=== PATIENT | female | born 1945 | race Caucasian/White ===

== ENCOUNTER 2016-12-01 13:35 | Outpatient (CLI) | payer MEDICARE, OTHER | END 2016-12-01 13:36 | disposition home or self-care (01) | DX: I25.10 Atherosclerotic heart disease of native coronary artery without angina pectoris (principal); I10 Essential (primary) hypertension; R73.01 Impaired fasting glucose; E78.9 Disorder of lipoprotein metabolism, unspecified ==

== ENCOUNTER 2017-06-16 22:45 | Emergency (ER) | payer MEDICARE, OTHER ==
[2017-06-16 23:47] LABS: BASOPHILS # (AUTO) 0.1 10^3/uL (0.0-0.1); BASOPHILS % (AUTO) 0.9 %; EOSINOPHILS # (AUTO) 0.3 10^3/uL (0.0-0.7); EOSINOPHILS % (AUTO) 4.3 %; HGB - HEMOGLOBIN 12.7 g/dL (12.0-16.0); LYMPHOCYTES # (AUTO) 2.7 10^3/uL (1.5-3.5); LYMPHOCYTES % (AUTO) 36.3 %; MEAN CORPUSCULAR HEMOGLOBIN 31.4 pg (27.0-31.0); MEAN CORPUSCULAR HGB CONC 34.3 g/dL (32.0-36.0); MEAN CORPUSCULAR VOLUME 91.5 fL (81.0-99.0); MEAN PLATELET VOLUME 8.5 fL (7.9-10.8); MONOCYTES # (AUTO) 0.7 10^3/uL (0.0-1.0); MONOCYTES % (AUTO) 9.2 %; NEUTROPHILS # (AUTO) 3.6 10^3/uL (1.5-6.6); NEUTROPHILS % (AUTO) 49.3 %; RED BLOOD COUNT 4.04 10^6/uL (4.20-5.40); RED CELL DISTRIBUTION WIDTH 14.1 % (12.0-15.0); UNCORRECTED WHITE BLOOD COUNT 7.3 x10^3/uL; WHITE BLOOD COUNT 7.3 x10^3/uL (4.8-10.8)
[2017-06-16 23:54] LABS: INR 0.9 (0.8-1.2); PT - PROTHROMBIN TIME 10.7 secs (9.9-12.6)
[2017-06-17 00:01] LABS: PARTIAL THROMBOPLASTIN TIME 27.1 secs (24.9-33.3)
[2017-06-17 00:02] LABS: ALBUMIN/GLOBULIN RATIO 1.4 (1.0-2.2); BILIRUBIN,TOTAL 0.5 mg/dL (0.2-1.0); CREATININE 0.8 mg/dL (0.4-1.0); POTASSIUM 3.7 mmol/L (3.5-5.0); TOTAL PROTEIN 6.6 g/dL (6.7-8.2)
--- NOTE | 2017-06-17 00:38 | Ultrasound Preliminary Report ---
Exam: US Duplex Ext Veins Left IMPRESSION: No evidence for left leg deep venous thrombosis. [facility] SITE ID: [id number]
--- NOTE | 2017-06-17 00:43 | Ultrasound Report ---
EXAM: LEFT LOWER EXTREMITY VENOUS ULTRASOUND EXAM DATE: 06/17/2017 12:27 AM. CLINICAL HISTORY: Unilateral leg swelling. COMPARISON: None. TECHNIQUE: Real-time sonographic vascular imaging was performed by the gang punch operator through the lower extremity utilizing both color-flow and Doppler spectral analysis. Multiple patient registration representative static reji ges were saved for review. FINDINGS: Common Femoral Vein (CFV): Normal. CFV-GSV Junction: Normal. Profunda Femoral Vein (PFV): Normal. Femoral Vein (FV) Prox: Normal. Femoral Vein (FV) Mid: Normal. Femoral Vein (FV) Dist: Normal. Popliteal Vein: Normal. Posterior Tibial Veins: Normal. Peroneal Veins: Normal. Contralateral Side CFV: Normal. Other: Subcutaneous edema present.. IMPRESSION: No evidence for left leg deep venous thrombosis. [facility] Referring Provider Line: [phone] SITE ID: [id number]
[2017-06-17 01:08] VITALS: BP 149/71
--- NOTE | 2017-06-17 01:09 | ED Physician Documentation ---
PD HPI LOWER EXT INJURY - Stated complaint Stated Complaint: FOOT/LEG PX - Chief complaint Chief Complaint: Ext Problem - History obtained from History obtained from: Patient - History of Present Illness PD HPI LOW EXT INJURY LOCATION: Left, Lower leg Where injury occurred: Home Timing - onset: Yesterday Timing - details: Gradual onset, Still present Improved by: Nothing Contributing factors: Prior ortho surgery Similar symptoms before: Has not had sx before Recently seen: Not recently seen - Additional information Additional information: Patient is a 72 year old female with multiple co-morbidities who is presenting to the emergency department for left sided leg swelling. patient states that she noticed the swelling over the last couple of days. Patient's family members were worried about a dvt so the patient came in for evaluation. Review of Systems Constitutional: denies: Fever, Chills Eyes: denies: Decreased vision, Photophobia Ears: denies: Ear pain, Drainage/discharge Nose: denies: Congestion Throat: denies: Sore throat Cardiac: reports: Pedal edema. denies: Chest pain / pressure, Palpitations, Calf pain Respiratory: reports: Wheezing. denies: Dyspnea, Cough GI: denies: Abdominal Pain, Nausea, Vomiting, Constipation : denies: Dysuria, Frequency, Hesitancy Skin: denies: Rash, Lesions Musculoskeletal: reports: Extremity swelling. denies: Neck pain, Back pain, Extremity pain Neurologic: denies: Generalized weakness, Focal weakness, Numbness, Difficulty speaking Immunocompromised: denies: Immunocompromised PD PAST MEDICAL HISTORY - Past Medical History Cardiovascular: [place], Hypertension, Other Respiratory: Other, COPD Neuro: None Endocrine/Autoimmune: None GI: None : None HEENT: None Psych: Anxiety Musculoskeletal: None Derm: None - Past Surgical History Past Surgical History: Yes General: Appendectomy Cardiovascular: AAA, Other HEENT: Cataracts, Tonsil/Adenoidectomy - Present Medications Home Medications: Ambulatory Orders Medication Instructions Recorded Confirmed Aspirin [Aspirin EC] 81 mg PO DAILY 08/02/15 08/02/15 Clonazepam [Klonopin] 1.5 mg PO TID 08/02/15 08/02/15 Duloxetine HCl [Cymbalta] 30 mg PO DAILY 08/02/15 08/02/15 Fluticasone Propionate [Flonase 1 spray NS BID 08/02/15 08/02/15 Allergy Relief] Fluticasone/Salmeterol [Advair 1 puffs IH BID 08/02/15 08/02/15 250-50 Diskus] Fosinopril Sodium 20 mg PO DAILY 08/02/15 08/02/15 Hydrocodone/Acetaminophen 1 - 2 tab PO Q6H PRN 08/02/15 08/02/15 [Hydrocodon-Acetaminophen 5-325] Ipratropium/Albuterol Sulfate 1 puffs IH QID PRN 08/02/15 08/02/15 [Combivent Respimat Inhal [place]] Atorvastatin Calcium 1 tab PO DAILY 06/16/17 06/16/17 Cyclobenzaprine [Flexeril] 5 mg PO PRN PRN 06/16/17 06/16/17 Furosemide [Lasix] 1 tab PO DAILY 06/16/17 06/16/17 Mirtazapine 1 tab PO QPM 06/16/17 06/16/17 Nitroglycerin 1 tab PO PRN PRN 06/16/17 06/16/17 [place]-3/Dha/Epa/Fish Oil [Fish Oil 1 tab PO DAILY 06/16/17 06/16/17 1,000 mg Softgel] Pantoprazole [Protonix] 1 tab PO DAILY 06/16/17 06/16/17 Polyethylene Glycol 3350 [Miralax] PO DAILY PM 06/16/17 Vit A/Vit C/Vit E/Zinc/Copper 1 tab PO DAILY 06/16/17 06/16/17 [Preservision Areds Softgel] - Allergies Allergies/Adverse Reactions: Allergies Allergy/AdvReac Type Severity Reaction Status Date / Time iodine Allergy Severe Respiratory Verified 06/16/17 22:57 prednisone AdvReac Unknown Unknown Verified 06/16/17 22:57 - Social History Does the pt smoke?: No Smoking Status: Former smoker Does the pt drink ETOH?: No Does the pt have substance abuse?: No - Immunizations Immunizations are current?: Yes PD ED PE NORMAL - Vitals Vital signs reviewed: Yes - General General: Alert and oriented X 3, No acute distress - HEENT HEENT: Atraumatic, PERRL, Pharynx benign - Neck Neck: Supple, no meningeal sign, No JVD - Cardiac Cardiac: RRR, No murmur - Abdomen Abdomen: Normal bowel sounds, Soft, Non tender, Non distended - Derm Derm: Normal color, Warm and dry, No rash - Neuro Neuro: Alert and oriented X 3, associate dean 2-12 intact, No motor deficit, No sensory deficit, Normal speech - Psych Psych: Normal mood, Normal affect PD ED PE EXPANDED - Respiratory Respiratory: Wheezing - Extremities Extremities: Left leg, Left ankle, Left foot, Pedal edema L (unilateral left sided plus 2 pitting edema, plus one on the right) Results - Vitals Vitals: Vital Signs - 24 hr 06/16/17 06/17/17 22:53 01:08 Temperature 36.8 C Heart Rate 75 72 Respiratory 18 18 Rate Blood Pressure 160/76 H 149/71 H O2 Saturation 96 98 Oxygen O2 Source Room air - Labs Labs: Laboratory Tests 06/16/17 06/16/17 06/16/17 23:41 23:41 23:41 WBC 7.3 RBC 4.04 L Hgb 12.7 Hct 37.0 MCV 91.5 MCH 31.4 H MCHC 34.3 RDW 14.1 Plt Count 184 MPV 8.5 Neut # 3.6 Lymph # 2.7 [place] # 0.7 Eos # 0.3 Baso # 0.1 Absolute Nucleated RBC 0.00 Nucleated RBCs 0.0 PT 10.7 INR 0.9 APTT 27.1 Sodium 143 Potassium 3.7 Chloride 104 Carbon Dioxide 30 Anion Gap 9.0 BUN 12 Creatinine 0.8 Estimated GFR (MDRD) 71 L Glucose 109 H Calcium 9.0 Total Bilirubin 0.5 AST 14 ALT 11 Alkaline Phosphatase 83 B-Natriuretic Peptide Total Protein 6.6 L Albumin 3.8 Globulin 2.8 Albumin/Globulin Ratio 1.4 Lipase 29 06/16/17 23:41 WBC RBC Hgb Hct MCV MCH MCHC RDW Plt Count MPV Neut # Lymph # Falls # Eos # Baso # Absolute Nucleated RBC Nucleated RBCs PT INR APTT Sodium Potassium Chloride Carbon Dioxide Anion Gap BUN Creatinine Estimated GFR (MDRD) Glucose Calcium Total Bilirubin AST ALT Alkaline Phosphatase B-Natriuretic Peptide 80 Total Protein Albumin Globulin Albumin/Globulin Ratio Lipase - Rads (name of study) dvt study Radiology: Final report received (no acute dvt) PD MEDICAL DECISION MAKING - ED course Complexity details: reviewed old records, reviewed results, re-evaluated patient , considered differential, d/w patient ED course: Patient was seen and examined at bedside. IV access was gained and labs were drawn. Imaging was ordered. Patient's diagnostics including dvt study were negative. Patient's findings were still consistent with DVT and patient was made aware of the importance of follow up and repeat imaging if necessary. patient required no further work up at this time and was stable for discharge with outpatient follow up. Departure - Departure Disposition: , Self Care Clinical Impression: Left leg swelling Condition: Good Instructions: ED Leg Swelling Unilateral Follow-Up: Pablo Mora MD [Primary Care Provider] - Within 3 Days Comments: Your diagnostics today were within normal limits. That being said dvt is still a possibility. You will need to follow up with your vascular doctor on sunday. You may return to the emergency department at any time for new, worsening or uncontrollable symptoms.
== END 2017-06-17 01:25 | disposition home or self-care (01) ==
LOC: ED 22:45
DX: M79.89 Other specified soft tissue disorders (principal); I25.2 Old myocardial infarction; I10 Essential (primary) hypertension; J44.9 Chronic obstructive pulmonary disease, unspecified; Z79.82 Long term (current) use of aspirin; Z87.891 Personal history of nicotine dependence
CPT/HCPCS: 36415; 80053; 83690; 83880; 85025; 85610; 85730; 99283

== ENCOUNTER 2018-02-27 08:00 | Outpatient (CLI) | payer MEDICARE, OTHER ==
[2018-02-27 19:25] LABS: BASOPHILS # (AUTO) 0.1 10^3/uL (0.0-0.1); BASOPHILS % (AUTO) 0.8 %; EOSINOPHILS # (AUTO) 0.4 10^3/uL (0.0-0.7); EOSINOPHILS % (AUTO) 5.6 %; HGB - HEMOGLOBIN 13.6 g/dL (12.0-16.0); LYMPHOCYTES # (AUTO) 2.3 10^3/uL (1.5-3.5); LYMPHOCYTES % (AUTO) 31.3 %; MEAN CORPUSCULAR HEMOGLOBIN 30.3 pg (27.0-31.0); MEAN CORPUSCULAR HGB CONC 32.9 g/dL (32.0-36.0); MEAN CORPUSCULAR VOLUME 92.1 fL (81.0-99.0); MEAN PLATELET VOLUME 9.2 fL (7.9-10.8); MONOCYTES # (AUTO) 0.5 10^3/uL (0.0-1.0); NEUTROPHILS # (AUTO) 4.1 10^3/uL (1.5-6.6); NEUTROPHILS % (AUTO) 55.3 %; PLT - PLATELET COUNT 244 10^3/uL (130-450); RED BLOOD COUNT 4.48 10^6/uL (4.20-5.40); RED CELL DISTRIBUTION WIDTH 13.5 % (12.0-15.0); WHITE BLOOD COUNT 7.4 x10^3/uL (4.8-10.8)
[2018-02-27 19:42] LABS: ALBUMIN 3.8 g/dL (3.2-5.5); ALBUMIN/GLOBULIN RATIO 1.2 (1.0-2.2); ALKALINE PHOSPHATASE 92 IU/L (42-121); ALT ALANINE AMINOTRANSFERASE 12 IU/L (10-60); AST ASPARTATE AMINOTRANSFERASE 16 IU/L (10-42); BILIRUBIN,TOTAL 0.7 mg/dL (0.2-1.0); BUN - BLOOD UREA NITROGEN 14 mg/dL (6-20); CALCIUM 9.1 mg/dL (8.5-10.3); CARBON DIOXIDE - CO2 24 mmol/L (21-32); CHLORIDE 107 mmol/L (101-111); CHOL/HDL RATIO 3.5 (<4.4); CHOLESTEROL 160 mg/dL; CREATININE 0.7 mg/dL (0.4-1.0); GFR - MDRD 82 (>89); GLUCOSE 138 mg/dL (70-100); HDL CHOLESTEROL 46 mg/dL; LDL CHOLESTEROL,CALCULATED 94 mg/dL; SODIUM 140 mmol/L (135-145); TOTAL PROTEIN 7.1 g/dL (6.7-8.2); VLDL CHOLESTEROL 20 mg/dL
[2018-02-27 20:09] LABS: HB2 TOTAL 15.3 g/dL; HEMOGLOBIN A1C 0.69 g/dL; HEMOGLOBIN A1C % 6.3 % (4.6-6.2)
== END 2018-02-27 08:01 ==
LOC: LAB.WCP 08:00
PROVIDERS: ATTEND Family Medicine
DX: R73.01 Impaired fasting glucose (principal); I10 Essential (primary) hypertension; I25.10 Atherosclerotic heart disease of native coronary artery without angina pectoris
CPT/HCPCS: 36415; 80053; 80061; 83036; 83721; 84443; 85025

== ENCOUNTER 2018-09-13 13:00 | Outpatient (CLI) | payer MEDICARE, OTHER ==
[2018-09-13 13:51] LABS: BASOPHILS # (AUTO) 0.1 10^3/uL (0.0-0.1); BASOPHILS % (AUTO) 0.9 %; EOSINOPHILS # (AUTO) 0.3 10^3/uL (0.0-0.7); EOSINOPHILS % (AUTO) 3.6 %; HGB - HEMOGLOBIN 15.1 g/dL (12.0-16.0); LYMPHOCYTES # (AUTO) 2.6 10^3/uL (1.5-3.5); LYMPHOCYTES % (AUTO) 31.1 %; MEAN CORPUSCULAR HEMOGLOBIN 31.7 pg (27.0-31.0); MEAN CORPUSCULAR HGB CONC 33.9 g/dL (32.0-36.0); MEAN CORPUSCULAR VOLUME 93.5 fL (81.0-99.0); MEAN PLATELET VOLUME 8.9 fL (7.9-10.8); MONOCYTES # (AUTO) 0.5 10^3/uL (0.0-1.0); MONOCYTES % (AUTO) 6.3 %; NEUTROPHILS # (AUTO) 4.9 10^3/uL (1.5-6.6); NEUTROPHILS % (AUTO) 58.1 %; PLT - PLATELET COUNT 214 10^3/uL (130-450); RED BLOOD COUNT 4.76 10^6/uL (4.20-5.40); RED CELL DISTRIBUTION WIDTH 14.2 % (12.0-15.0); WHITE BLOOD COUNT 8.4 x10^3/uL (4.8-10.8)
[2018-09-13 14:14] LABS: ALBUMIN 4.1 g/dL (3.2-5.5); ALBUMIN/GLOBULIN RATIO 1.3 (1.0-2.2); ALKALINE PHOSPHATASE 104 IU/L (42-121); ALT ALANINE AMINOTRANSFERASE 18 IU/L (10-60); AST ASPARTATE AMINOTRANSFERASE 20 IU/L (10-42); BILIRUBIN,TOTAL 0.9 mg/dL (0.2-1.0); BUN - BLOOD UREA NITROGEN 22 mg/dL (6-20); CALCIUM 9.5 mg/dL (8.5-10.3); CARBON DIOXIDE - CO2 28 mmol/L (21-32); CHLORIDE 102 mmol/L (101-111); CHOL/HDL RATIO 4.1 (<4.4); CHOLESTEROL 172 mg/dL; CREATININE 0.8 mg/dL (0.4-1.0); GFR - MDRD 70 (>89); GLUCOSE 187 mg/dL (70-100); HDL CHOLESTEROL 42 mg/dL; LDL CHOLESTEROL,CALCULATED 78 mg/dL; LDL/HDL RATIO 1.9 (<4.4); SODIUM 139 mmol/L (135-145); TOTAL PROTEIN 7.2 g/dL (6.7-8.2); VLDL CHOLESTEROL 52 mg/dL
== END 2018-09-13 13:01 | disposition home or self-care (01) ==
LOC: LAB 13:00
PROVIDERS: ATTEND Family Medicine
DX: R53.81 Other malaise (principal); R06.09 Other forms of dyspnea; I25.10 Atherosclerotic heart disease of native coronary artery without angina pectoris
CPT/HCPCS: 36415; 80053; 80061; 83721; 83880; 84443; 85025; 85651

== ENCOUNTER 2018-09-16 11:43 | Inpatient (IN) | payer MEDICARE, OTHER ==
[2018-09-16] MEDS ORDERED: ALBUTEROL NEB 2.5 MG/3 ML INH ONE (11:52)
[2018-09-16] MEDS ORDERED: DEXAMETHASONE 10 MG/ML VIAL ONE (11:54)
[2018-09-16] MEDS ORDERED: MAGNESIUM SULFATE 2 GRAM 2 GM/50 ML BAG IV ONE (12:00)
[2018-09-16] MEDS ORDERED: DEXAMETHASONE 10 MG/ML VIAL IVP STA (12:13)
--- NOTE | 2018-09-16 12:22 | XRAY Report ---
Reason: chest pain Procedure Date: 09/16/2018 Accession Number: [id number] / [id number] Procedure: XR - Chest 1 View X-Ray CPT Code: 12596 FULL RESULT: EXAM: CHEST RADIOGRAPHY EXAM DATE: 09/16/2018 12:10 PM. CLINICAL HISTORY: Chest pain. COMPARISON: None. TECHNIQUE: 1 view. FINDINGS: Lungs/Pleura: No focal opacities evident. No pleural effusion. No pneumothorax. Mediastinum: Within exam limitations, the cardiomediastinal contour is normal. There is mild atherosclerotic calcification of the aortic arch. Other: No acute osseous abnormality. IMPRESSION: No acute cardiopulmonary abnormality. [facility]
[2018-09-16 12:35] LABS: PT - PROTHROMBIN TIME 11.4 secs (9.9-12.6)
[2018-09-16 12:42] LABS: ALBUMIN 3.8 g/dL (3.2-5.5); ALBUMIN/GLOBULIN RATIO 1.2 (1.0-2.2); ALKALINE PHOSPHATASE 117 IU/L (50-400); ALT ALANINE AMINOTRANSFERASE 26 IU/L (10-60); AST ASPARTATE AMINOTRANSFERASE 43 IU/L (10-42); BILIRUBIN,TOTAL 0.7 mg/dL (1.3-11.3); BUN - BLOOD UREA NITROGEN 16 mg/dL (6-20); CALCIUM 8.5 mg/dL (8.5-10.3); CARBON DIOXIDE - CO2 20 mmol/L (21-32); CHLORIDE 104 mmol/L (101-111); CREATININE 0.8 mg/dL (0.4-1.0); GLUCOSE 400 mg/dL; LIPASE 43 U/L (22-51); SODIUM 134 mmol/L (135-145)
[2018-09-16 12:50] LABS: BASOPHILS # (AUTO) 0.1 10^3/uL (0.0-0.4); BASOPHILS % (AUTO) 0.9 %; EOSINOPHILS # (AUTO) 0.3 10^3/uL (0.0-2.0); EOSINOPHILS % (AUTO) 2.7 %; HGB - HEMOGLOBIN 14.9 g/dL (12.0-16.0); LYMPHOCYTES # (AUTO) 5.8 10^3/uL (2.5-10.5); LYMPHOCYTES % (AUTO) 49.4 %; MEAN CORPUSCULAR HEMOGLOBIN 32.1 pg (28.0-40.0); MEAN CORPUSCULAR HGB CONC 33.5 g/dL (32.0-36.0); MEAN PLATELET VOLUME 9.3 fL (7.9-10.8); MONOCYTES # (AUTO) 0.7 10^3/uL (0.0-3.5); MONOCYTES % (AUTO) 6.3 %; NEUTROPHILS # (AUTO) 4.8 10^3/uL (1.5-6.6); NEUTROPHILS % (AUTO) 40.7 %; PLT - PLATELET COUNT 210 10^3/uL (130-450); RED BLOOD COUNT 4.63 10^6/uL (4.10-6.70); RED CELL DISTRIBUTION WIDTH 14.5 % (12.0-15.0); WHITE BLOOD COUNT 11.7 x10^3/uL (9.0-30.0)
[2018-09-16 12:53] LABS: MUDS CUTOFF CONCENTRATIONS CUTOFF CONC BELOW:
[2018-09-16 12:56] LABS: ABG PCO2 46 mmHg (27-41); ABG PH 7.25 (7.29-7.45)
[2018-09-16 12:57] LABS: ABG PO2 432 mmHg (54-95)
[2018-09-16 12:58] LABS: ABG BASE EXCESS -7.8 mmol/L (-4.0-2.0); ABG HCO3 19.4 mmol/L (16.0-24.0); ABG OXYGEN SATURATION 100 % (94-98); ABG TCO2 20.8 MMOL/L (20.0-28.0); ALLEN TEST POSITIVE
[2018-09-16 13:09] LABS: AMPHETAMINE SCREEN,URINE NEGATIVE (NEGATIVE); BENZODIAZEPINES SCREEN, URINE NEGATIVE (NEGATIVE); COCAINE SCREEN URINE NEGATIVE (NEGATIVE); METHADONE SCREEN, URINE NEGATIVE (NEGATIVE); METHAMPHETAMINES SCREEN, URINE NEGATIVE (NEGATIVE); OPIATE SCREEN, URINE POSITIVE (NEGATIVE); OXYCODONE SCREEN, URINE NEGATIVE (NEGATIVE); PROPOXYPHENE SCREEN, URINE NEGATIVE (NEGATIVE); TRICYCLIC ANTIDEPRESSANT,URINE NEGATIVE (NEGATIVE)
[2018-09-16] MEDS ORDERED: SODIUM CHLORIDE 0.9% 1,000 ML IV ONE (13:15)
--- NOTE | 2018-09-16 13:19 | ED Physician Documentation ---
PD HPI DYSPNEA - Stated complaint Stated Complaint: SOA - Chief complaint Chief Complaint: Critical Care - History obtained from History obtained from: EMS - Additional information Additional information: 73-year-old female was brought to the emergency department for respiratory distress. EMS was called and the patient ambulated to the ambulance and then went into full respiratory failure. EMS was within seconds for the hospital and brought the patient in immediately. The patient did receive some albuterol in route. Review of Systems Unable to obtain: Other (The patient is in florid respiratory distress, confused and altered and unable to answer questions) PD PAST MEDICAL HISTORY - Past Medical History Cardiovascular: [place], Hypertension, Other Respiratory: Other, COPD Endocrine/Autoimmune: None GI: None : None HEENT: None Psych: Anxiety Musculoskeletal: None Derm: None - Past Surgical History Past Surgical History: Yes General: Appendectomy Cardiovascular: AAA, Other HEENT: Cataracts, Tonsil/Adenoidectomy - Present Medications Home Medications: Ambulatory Orders Medication Instructions Recorded Confirmed Aspirin [Aspirin EC] 81 mg PO DAILY 08/02/15 08/02/15 Duloxetine HCl [Cymbalta] 30 mg PO DAILY 08/02/15 08/02/15 Fluticasone Propionate [Flonase 1 spray NS BID 08/02/15 08/02/15 Allergy Relief] Fluticasone/Salmeterol [Advair 1 puffs IH BID 08/02/15 08/02/15 250-50 Diskus] Fosinopril Sodium 20 mg PO DAILY 08/02/15 08/02/15 Hydrocodone/Acetaminophen 1 - 2 tab PO Q6H PRN 08/02/15 08/02/15 [Hydrocodon-Acetaminophen 5-325] Ipratropium/Albuterol Sulfate 1 puffs IH QID PRN 08/02/15 08/02/15 [Combivent Respimat Inhal [place]] clonazePAM [Klonopin] 1.5 mg PO TID 08/02/15 08/02/15 Atorvastatin Calcium 1 tab PO DAILY 06/16/17 06/16/17 Cyclobenzaprine [Flexeril] 5 mg PO PRN PRN 06/16/17 06/16/17 Furosemide [Lasix] 1 tab PO DAILY 06/16/17 06/16/17 Mirtazapine 1 tab PO QPM 06/16/17 06/16/17 Nitroglycerin 1 tab PO PRN PRN 06/16/17 06/16/17 [place]-3/Dha/Epa/Fish Oil [Fish Oil 1 tab PO DAILY 06/16/17 06/16/17 1,000 mg Softgel] Pantoprazole [Protonix] 1 tab PO DAILY 06/16/17 06/16/17 Polyethylene Glycol 3350 [Miralax] PO DAILY PM 06/16/17 Vit A/Vit C/Vit E/Zinc/Copper 1 tab PO DAILY 06/16/17 06/16/17 [Preservision Areds Softgel] - Allergies Allergies/Adverse Reactions: Allergies Allergy/AdvReac Type Severity Reaction Status Date / Time iodine Allergy Severe Respiratory Verified 09/16/18 12:51 prednisone AdvReac Unknown Unknown Verified 09/16/18 12:51 - Social History Does the pt smoke?: No Smoking Status: Former smoker Does the pt drink ETOH?: No Does the pt have substance abuse?: No - Immunizations Immunizations are current?: Yes PD ED PE NORMAL - HEENT HEENT: Atraumatic, PERRL - Neck Neck: No JVD - Cardiac Cardiac: RRR, Strong equal pulses - Respiratory Respiratory: Other (Respiratory failure, poor aeration, spontaneous respirations) - Abdomen Abdomen: Soft - Derm Derm: Other (Mottled extremities) - Extremities Extremities: No deformity PD ED PE EXPANDED - General General: In distress, Unresponsive, Other (Ill-appearing nontoxic) Results - Vitals Vitals: Vital Signs - 24 hr 09/16/18 09/16/18 09/16/18 11:43 11:45 12:12 Temperature Heart Rate 93 90 81 L Respiratory 30 30 H 30 Rate Blood Pressure 182/93 H 147/83 H O2 Saturation 100 99 09/16/18 09/16/18 09/16/18 12:17 12:35 12:36 Temperature 36.4 C L Heart Rate 62 L 67 L Respiratory 22 L 23 L Rate Blood Pressure 76/57 79/56 O2 Saturation 99 99 09/16/18 09/16/18 09/16/18 12:40 12:55 13:03 Temperature Heart Rate 64 L 63 65 Respiratory 22 L 15 18 Rate Blood Pressure 82/55 80/54 L 77/54 L O2 Saturation 99 100 99 09/16/18 13:35 Temperature Heart Rate 61 Respiratory 16 Rate Blood Pressure 87/55 L O2 Saturation 98 Oxygen O2 Source Patient supplied BIPAP - Labs Labs: Laboratory Tests 09/16/18 09/16/18 09/16/18 12:20 12:20 12:20 WBC 11.7 RBC 4.63 Hgb 14.9 Hct 44.4 MCV 96.0 MCH 32.1 MCHC 33.5 RDW 14.5 Plt Count 210 MPV 9.3 Neut # (Auto) 4.8 Lymph # (Auto) 5.8 [place] # (Auto) 0.7 Eos # (Auto) 0.3 Baso # (Auto) 0.1 Absolute Nucleated RBC 0.01 Nucleated RBC % 0.0 Manual Slide Review Indicated Platelet Estimate NORMAL (130-450,000) RBC Morph Micro Appear NORMAL APPEARANCE PT 11.4 INR 1.0 APTT 29.5 Bld Gas Analysis Time Sample Site ABG pH ABG pCO2 ABG pO2 ABG HCO3 ABG Total CO2 ABG O2 Saturation ABG Base Excess Tobias Test O2 Delivery Device FiO2 EPAP IPAP Sodium 134 L Potassium 4.1 Chloride 104 Carbon Dioxide 20 L Anion Gap 10.0 BUN 16 Creatinine 0.8 Glucose 400 Lactic Acid Calcium 8.5 Total Bilirubin 0.7 L AST 43 H ALT 26 Alkaline Phosphatase 117 Troponin I B-Natriuretic Peptide Total Protein 7.0 Albumin 3.8 Globulin 3.2 Albumin/Globulin Ratio 1.2 Lipase 43 Urine Opiates Screen Ur Oxycodone Screen Urine Methadone Screen Ur Propoxyphene Screen Ur Barbiturates Screen Ur Tricyclics Screen Ur Phencyclidine Scrn Ur Amphetamine Screen U Methamphetamines Scrn U Benzodiazepines Scrn Urine Cocaine Screen U Cannabinoids Screen 09/16/18 09/16/18 09/16/18 12:20 12:20 12:20 WBC RBC Hgb Hct MCV MCH MCHC RDW Plt Count MPV Neut # (Auto) Lymph # (Auto) [place] # (Auto) Eos # (Auto) Baso # (Auto) Absolute Nucleated RBC Nucleated RBC % Manual Slide Review Platelet Estimate RBC Morph Micro Appear PT INR APTT Bld Gas Analysis Time Sample Site ABG pH ABG pCO2 ABG pO2 ABG HCO3 ABG Total CO2 ABG O2 Saturation ABG Base Excess [place] Test O2 Delivery Device FiO2 EPAP IPAP Sodium Potassium Chloride Carbon Dioxide Anion Gap BUN Creatinine Glucose Lactic Acid 3.9 H* Calcium Total Bilirubin AST ALT Alkaline Phosphatase Troponin I 0.05 B-Natriuretic Peptide 52 Total Protein Albumin Globulin Albumin/Globulin Ratio Lipase Urine Opiates Screen Ur Oxycodone Screen Urine Methadone Screen Ur Propoxyphene Screen Ur Barbiturates Screen Ur Tricyclics Screen Ur Phencyclidine Scrn Ur Amphetamine Screen U Methamphetamines Scrn U Benzodiazepines Scrn Urine Cocaine Screen U Cannabinoids Screen 09/16/18 09/16/18 12:27 12:40 WBC RBC Hgb Hct MCV MCH MCHC RDW Plt Count MPV Neut # (Auto) Lymph # (Auto) [place] # (Auto) Eos # (Auto) Baso # (Auto) Absolute Nucleated RBC Nucleated RBC % Manual Slide Review Platelet Estimate RBC Morph Micro Appear PT INR APTT Bld Gas Analysis Time 1253 Sample Site LEFT RADIAL ABG pH 7.25 L ABG pCO2 46 H ABG pO2 432 H* ABG HCO3 19.4 ABG Total CO2 20.8 ABG O2 Saturation 100 H ABG Base Excess -7.8 L Tobias Test POSITIVE O2 Delivery Device BiPAP FiO2 75.00 EPAP 7 IPAP 14 Sodium Potassium Chloride Carbon Dioxide Anion Gap BUN Creatinine Glucose Lactic Acid Calcium Total Bilirubin AST ALT Alkaline Phosphatase Troponin I B-Natriuretic Peptide Total Protein Albumin Globulin Albumin/Globulin Ratio Lipase Urine Opiates Screen POSITIVE H Ur Oxycodone Screen NEGATIVE Urine Methadone Screen NEGATIVE Ur Propoxyphene Screen NEGATIVE Ur Barbiturates Screen NEGATIVE Ur Tricyclics Screen NEGATIVE Ur Phencyclidine Scrn NEGATIVE Ur Amphetamine Screen NEGATIVE U Methamphetamines Scrn NEGATIVE U Benzodiazepines Scrn NEGATIVE Urine Cocaine Screen NEGATIVE U Cannabinoids Screen NEGATIVE - Rads (name of study) CXR Radiology: Final report received PD MEDICAL DECISION MAKING - ED course ED course: The patient arrived in respiratory failure, the patient was not moving any air and had become obtunded. The patient was resuscitated with BiPAP and was nebulized with high-dose albuterol through the BiPAP. The patient was able to work with the BiPAP machine. The patient did improve. The patient now after prolonged resuscitation in the emergency department has improved in her mentation and her breathing is under much better control. The patient's BiPAP was titrated down to a low level and so is her oxygen. The patient will require admission to the hospital for ongoing observation. The findings and plan were discussed with the patient who understands and agrees. The case was discussed with the hospitalist Dr. Mendieta who accepts the patient onto her service. - Critical Care Time(min): 35 Time Includes: Direct patient care, Reassess patient, Document care, Coordinate care Data interpretation: Labs, Pulse ox, ABG, CXR Procedures excluded from critical care time: EKG Departure - Departure Disposition: ED Place in Observation Clinical Impression: Respiratory failure Qualifiers: Chronicity: acute Respiratory failure complication: unspecified whether with hypoxia or hypercapnia Qualified Code(s): J96.00 - Acute respiratory failure, unspecified whether with hypoxia or hypercapnia
[2018-09-16 13:33] LABS: PLATELET ESTIMATE, MANUAL NORMAL (130-450,000) (NORMAL)
[2018-09-16 13:34] LABS: RBC MORPHOLOGY (MULTIPLE) NORMAL APPEARANCE (NORMAL)
[2018-09-16] MEDS ORDERED: ALBUTEROL NEB 2.5 MG/3 ML INH STA (13:40)
[2018-09-16] MEDS ORDERED: ONDANSETRON 4 MG/2 ML VIAL IVP PRN (13:51)
[2018-09-16] MEDS ORDERED: SODIUM CHLORIDE FLUSH 0.9% 10 ML SYRINGE IVP PRN (13:51)
[2018-09-16] MEDS ORDERED: ONDANSETRON ODT 4 MG TABLET TL PRN (13:51)
[2018-09-16] MEDS ORDERED: ACETAMINOPHEN 325 MG TABLET PO PRN (13:51)
[2018-09-16] MEDS ORDERED: oxyCODONE 5 MG TABLET PO PRN (13:51)
[2018-09-16] MEDS ORDERED: NITROGLYCERIN SL 0.4 MG TABLET SL PRN (14:00)
[2018-09-16] MEDS ORDERED: CYCLOBENZAPRINE 10 MG TABLET PO PRN (14:00)
[2018-09-16] MEDS ORDERED: SODIUM CHLORIDE 0.9% 1,000 ML IV SCH (14:00)
--- NOTE | 2018-09-16 14:08 | HISTORY & PHYSICAL EXAMINATION ---
Chief Complaint - Chief Complaint Chief Complaint: shortness of breath, sudden, while on toilet History of Present Illness - Admitted From Admitted From:: Home/ER - History Obtained From Records Reviewed: Balwinder Bradley History obtained from: Dr. Brandon and patient Exam Limitations: none. she is off BiPAP, alert - History of Present Illness HPI Comment/Other: This is an unfortunate female who is been having episodes of respiratory distress associated with syncope and occasional intubation since 2005. Some of these are associated with going to the bathroom and a bowel movement. Some of the more associated with exertion. So far none of them of happened at rest. She has been seen by cardiology at [facility], [facility] cardiology, and [facility] cardiology. While she certainly has peripheral vascular disease and has had 3 coronary angiograms associated with some of these episodes, there is been only one episode where she had a small GA and an LAD stent was placed in 2014. She has had reveal loop place. She had one placed in August 2007 and went on to have a couple of more episodes of syncope in 2008. But she did not understand that she needs as she download the data on the reveal loop and as such all the data was lost. She finally had an episode of syncope in 2008 and the reveal loop was negative. Again that episode of syncope was associated with respiratory distress. She saw a handbell choir director in 2008 for colonoscopy and EGD in association with reflux di sease and ischemic colitis. In the preoperative setting her blood pressure was 77/47 in the left arm, and 92/52 in the right arm, and a pulse of 43. She was felt to have possible orthostatic syncope because of over managed hypertension and heart disease with her ARB and beta-figueroa. She was finally able to be seen, at her request, at the [facility] March 2010. They did an echocardiogram and a 24-hour Holter. She was found to have sinus bradycardia with a heart range of 36-77 bpm over 20 hours, and an echo was normal. Differential diagnosis included vagal mediated transit bradycardia causing pulmonary edema because in the setting of underlying COPD her respiratory reserve could be limi christiano. It was an unusual presentation they thought that diagnosis was "out there". It also included thinking about transient vocal cord dysfunction. Bronchospasm triggering episodes of dyspnea but the trigger of having bowel movements prior to each episode would be unusual. In 2009 she had not had an episode. They recommended decreasing her metoprolol even further than the dose that was already reduced in 2008. She had no further episodes for about 1-1/2 years and in November 2010 had another mild episode of lightheadedness and almost felt like she was passing out. Again this occurred with a bowel movement. She was sent to pulmonology and was seen by pulmonology December 2010. And he felt that it was highly unlikely that there was a pulmonary cause. He recommended yet another cardiology evaluation and another Holter. He felt that she had stable COPD since 2005 and recommended continuing her long-acting bronchodilator. With that visit she had a moderate obstructive defect with an FEV1 of 1.28 L which was 60% predicted. FVC of 2 L which was 73% predicted. Ratio of 0.64. No bronchodilator response. After not having any episodes in 11/2011, the patient wanted her reveal loop removed and that was removed in December 2011. Because of her peripheral vascular disease including subclavian stenosis and bilateral iliac stenosis, she had followed by the [facility] vascular surgery department. Dr. Arun Schwartz. She again passed out With shortness of breath August 2014. Yet another referral was made to cardiology. She then called 911 with shortness of breath in June 2015 and stopped responding well on the phone with a dispatch. Law enforcement found her sitting up in obvious distress and was unresponsive by the time EMS arrived. She was intubated in the field. And she went directly to the [facility] to [facility]. She had another coronary angiogram and had intracoronary thrombolysis. She was felt to have sluggish flow down the LAD which resolved after the thrombolysis. No stent was deployed. 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 She was subsequently hospitalized here at our hospital in June 2015 and July 2015 for acute shortness of breath. Each time she quickly reversed with nebulizer treatment and BiPAP. Troponins were elevated at 0.16 and subsequently peaked at 1.33. CT of the abdomen done with one of those admissions showed infrarenal aortobifemoral bypass. No aneurysms. Celiac and bilateral renal artery stenosis. Inferior mesenteric artery was occluded. SMA look good. She was seen in follow-up by [facility] cardiology August 2015. They too are puzzled by her presentation. Their differential diagnosis included renal artery stenosis, other reasons for flash pulmonary edema, medication noncompliance, vascular disease and ischemia. The echocardiogram done August 2015 has an ejection fraction of 60-65%,. When she had her STEMI and thrombolysis June 2015, her ejection fraction had gone down to 30%. Between 2014 and now the patient is continued to be followed by her environmental issues instructor, her vascular surgeon. She had a stress test in March 2017 which was negative. The only other thing she is been having is chronic back pain. So she has had epidural steroid injections in September 2017 and August 2017. She was seen in the office of her primary care provider for fatigue and shortness of breath on September 12. She was crying stating "I feel sick as a dog". She felt achy, weak, slightly decreased appetite, but denied fever, cough, sinus congestion. No abdominal pain. She was treated as reactive airway disease twice that month with antibiotics and steroids and none of it really helped her. She now comes in with the same presentation she had in June 2015. She called EMS/911 because of shortness of breath that started while she was on the toilet as usual. She really doesn't remember if any of her episodes were ever not with being on the toilet.. She actually walked out to the ambulance crew complaining of the shortness of breath. By the time the ambulance crew finished evaluating her she had become unresponsive with a near respiratory arrest. She was brought into the emergency room and received nebulizers, BiPAP, and the ER doctor was close to intubating her.He heard poor aeration, minimal breath sounds, but respirations were spontaneous. Extremities were mottled. Her blood pressure was 182/93, heart rate 93 and respiratory rate 30. Her chest x-ray had no acute cardiopulmonary abnormality. Her troponin was less than 0.05. Lactic acid was elevated but is attributed to her acidosis. Her blood gas showed a pH of 7.27, PCO2 46, PO2 432, base excess -7.8. History - Past Medical History Cardiovascular: reports: Congestive heart failure (Stress tests w nml EF 2005 and 2007. Echo nml 02/2009 and EF 75%. Cath w nml EF 2014. Stress test nml EF 2016. ), Hypertension, High cholesterol, Coronary artery disease (Stent to LAD March 2006 p GA. No CABG. Stress test neg 06/2006 w EF 80%. Syncope 12/2006 with stress test neg 02/13/07. Cath for sob 10/2007 with EF 70%, and patent stent to LAD. Minimal disease. Respp distress with angiogram in [place] 03/23 for elev troponins was nml Last coronary angiogram July 04, 2015. Mid LAD descending artery stent in the LAD with MACIEJ to flow which was treated with intracoronary Integrilin and adenosine.), Peripheral Vascular Disease (Aortobifemoral bypass, bilateral dacron graft 12/2006 and has DELMIS stenosis, AAA repaired, bilateral suclavian artery stenosis assoc w intermittent claudication, s/p left sub art stent. Has 16-49% stenosis of carotid arteries ), GA (March 2006 ) Respiratory: reports: Asthma, COPD Neuro: reports: Fainting (associated w resp distress. 2005, 2006. Had implantable loop 08/2007 but never called in syncope to cardiologst 2007, MRI and MRA neg 2007, CT head neg 2008 then placed on neurontin for leg pain and episoides seems to disappear 2008, but had another one in [place] 2008. When seen by GI for EGD and colonoscopy 05/2009 Left arm BP 77/47, right arm 92/52 and a pulse of 43. So could her syncope be from low BP? [facility] thinks it may be vasovagal variation) Endocrine/Autoimmune: reports: None GI: reports: GERD (EGD 05/23 negative), Other (ischemic colitis w hopsitalization Chris 08/2008. no surgery>ASA + plavix) CHILD CARE COORDINATOR: reports: Other () : reports: Other (stool in urine once and had cystoscopy that was normal 03/2008) HEENT: reports: Other (Cataracts removed) Psych: reports: Depression, Anxiety Musculoskeletal: reports: Chronic back pain (With lumbar epidural steroid injections in 2017) Derm: reports: None MRSA Hx?: No - Past Surgical History General: reports: Cholecystectomy, Appendectomy, Colonoscopy, EGD /CHILD CARE COORDINATOR: reports: section, Other () Cardiovascular: reports: Coronary stent, AAA HEENT: reports: Cataracts, Tonsil/Adenoidectomy - Family & Social History Family History Comment/Other: Father from colon cancer age 78. Mom had diabetes, at 78 unknown reason. Brother had diabetes. Sister w defibrillator 2007. sister w breast cancer. 3 kids are healthy. 3 children Living arrangement: At home Living Situation: Alone ( approximately 2015) Social History Notes: She is from [place] and moved to [place] in early s and her is from [place]. They have 3 children and daughter lives nearby. She was to her for 42 years. He had alcoholic liver disease adn dementia and 06/2016 of C diff and esophageal rupture. She smoked 1 and 1/2 packs/day for 40 years and quit in 2005. She has no history of alcohol abuse. She sold her house and lived w a daughter for a few months and just, just moved in to mobile home in [place] a few weeks ago. Very stressed. - Substance History Use: Uses substance without health or social issues: NONE Abuse: Recurrent use of substance despite neg consequences: NONE Dependence: Experiences withdrawal or developed tolerances: NONE - POLST Patient has POLST: No POLST Status: Full Code Meds/Allgy - Home Medications Home Medications: Ambulatory Orders Medication Instructions Recorded Confirmed Aspirin [Aspirin EC] 81 mg PO DAILY 08/02/15 09/16/18 Duloxetine HCl [Cymbalta] 30 mg PO DAILY 08/02/15 09/16/18 Fluticasone Propionate [Flonase 1 spray NS BID 08/02/15 09/16/18 Allergy Relief] Fluticasone/Salmeterol [Advair 1 inh IH BID 08/02/15 09/16/18 250-50 Diskus] Fosinopril Sodium 20 mg PO QPM 08/02/15 09/16/18 Ipratropium/Albuterol Sulfate 1 puffs IH QID PRN 08/02/15 09/16/18 [Combivent Respimat Inhal [place]] clonazePAM [Klonopin] 1.5 mg PO TID 08/02/15 09/16/18 Atorvastatin Calcium 40 mg PO DAILY 06/16/17 09/16/18 Mirtazapine 15 mg PO QPM 06/16/17 09/16/18 Nitroglycerin 1 tab PO Q5MIN PRN MDD 3 TABLETS 06/16/17 09/16/18 [place]-3/Dha/Epa/Fish Oil [Fish Oil 1 tab PO BID 06/16/17 09/16/18 1,000 mg Softgel] Pantoprazole [Protonix] 1 tab PO QDLUNCH 06/16/17 09/16/18 Vit A/Vit C/Vit E/Zinc/Copper 1 tab PO QPM 06/16/17 09/16/18 [Preservision Areds Softgel] Docusate Sodium 200 mg PO QPM 09/16/18 09/16/18 Isosorbide Mononitrate ER [Imdur] 30 mg PO DAILY 09/16/18 09/16/18 Metoprolol Succinate 25 mg PO DAILY 09/16/18 09/16/18 - Allergies Allergies/Adverse Reactions: Allergies Allergy/AdvReac Type Severity Reaction Status Date / Time iodine Allergy Severe Respiratory Verified 09/16/18 12:51 prednisone AdvReac Unknown Unknown Verified 09/16/18 12:51 Review of Systems - Constitutional Constitutional: reports: Fatigue (because of move). denies: Fever, Chills, Malaise, Weakness - Eyes Eyes: denies: Pain, Irritation, Amaurosis, Blurred vision - Ears, Nose & Throat Ears, Nose & Throat: denies: Ear pain, Hearing loss, Hearing aids, Sore throat, Hoarseness - Cardiovascular Cariovascular: reports: Lightheadedness, Exertional dyspnea. denies: Irregular heart rate, Palpitations, Chest pain, Edema - Respiratory Respiratory: reports: Cough, Wheezing, SOB with exertion. denies: Sputum production, Snoring, Orthopnea, SOB at rest - Gastrointestinal Gastrointestinal: reports: Abdominal pain (left upper quadrant has ached for a few days), Constipation, Diarrhea. denies: Abdominal distention - Genitourinary Genitourinary: denies: Dysuria, Frequency, Urgency - Musculoskeletal Musculoskeletal: reports: Muscle aches (from moving and is not even finished w storage unit), Other (back pain is worse w the moving and doesn't want to do more LESI until she's done moving.) - Integumentary Integumentary: denies: Rash, Pruritis, Lesions - Neurological Neurological: denies: General weakness, Focal weakness, Headache, Dizziness, Memory problems - Psychiatric Psychiatric: reports: Depression, Anxiety. denies: Suicidal, Delusions, Hallucinations - Endocrine Endocrine: denies: Polyuria, Polydypsia, Polyphagia - Hematologic/Lymphatic Hematologic/Lymphatic: denies: Anemia Prior Level of Functionality: She is independent with her activities of daily living. Still drives a car. Relies on her daughter to help her some with figuring out finances, and more heavy labor at the house. No cane or walker or wheelchair . Still cooks and cleans and her [id number] who is at bedside says she is independent. Exam - Vital Signs Reviewed Vital Signs: Yes Vital Signs: Vital Signs x48h Temp Pulse Resp BP Pulse Ox 09/16/18 14:03 58 L 16 94/63 98 09/16/18 13:35 61 16 87/55 L 98 09/16/18 13:03 65 18 77/54 L 99 09/16/18 12:55 63 15 80/54 L 100 09/16/18 12:40 64 L 22 L 82/55 99 09/16/18 12:36 67 L 23 L 79/56 99 09/16/18 12:35 62 L 22 L 76/57 99 09/16/18 12:17 36.4 C L 09/16/18 12:12 81 L 30 147/83 H 99 09/16/18 11:45 90 30 H 09/16/18 11:43 93 30 182/93 H 100 - Physical Exam General Appearance: positive: No acute distress, Alert, Other (Difficult historian in that all details were included in the story. 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 Then being found down in the bathroom with blood and esophageal rupture, transfer to [facility] and finally succumbing to C. difficile colitis.) Eyes Bilateral: positive: PERRL, EOMI ENT: positive: Pharynx nml Neck: positive: No JVD, Carotid bruit (Bilateral). negative: Lymphadenopathy (R), Lymphadenopathy (L) Respiratory: positive: Chest non-tender, Wheezes, Other (And occasional inspiratory stridor). negative: No respiratory distress, Rales, Rhonchi Cardiovascular: positive: Regular rate & rhythm, Systolic murmur. negative: Gallop/S4, Friction rub Peripheral Pulses: positive: 0 Abdomen: positive: No organomegaly, Nml bowel sounds, No distention, Tenderness (Left upper quadrant, but no masses palpable. Skin looks normal. No bruising.). negative: Guarding, Rebound Back: positive: Nml inspection Skin: positive: Warm, Dry. negative: Diaphoresis Extremities: positive: Non-tender, No pedal edema, Other (Both great toenails are gone from probable removal after onychomycosis. Slivers of onychomycosis present in all the toenails and all of her on both feet. Pulses are not palpable but capillary refill is less than 2 seconds in both great toes. Skin and feet are warm and pink.) Neurologic/Psychiatric: positive: Oriented x3, CN's nml (2-12), Motor nml, Sensation nml Conclusion/Plan - Problem List (1) Acute respiratory failure with hypoxia Conclusion/Plan: one of many episodes since 2005 in association with sitting on the toilet. She is already turning the corner and is off BiPAP, sitting up in bed, speaking to me, her daughter and [id number]. As described by [facility], the episodes are possible vasovagal responses on top of a patient who has limited pulmonary and autonomic reserve causing possible pulmonary edema. This is a very very unusual case. I explained that we most likely won't be able to add to the workup since she has been seen by multiple, multiple institutions. But we will support her accordingly. I had admitted her as inpatient, expecting a prolonged course in someone who had flash acute respiratory failure but she is already almost back to baseline. (2) Vasovagal episode Conclusion/Plan: she has had her betablocker reduced twice now. I wonder if it should be stopped completely. (3) COPD (chronic obstructive pulmonary disease) Conclusion/Plan: wheezing on exam. gets a little tachypneic w speak to me. and getting excited or tearful. continue nebs. now steroids for now. no abx. clear Qualifiers: COPD type: emphysema (4) Lactic acid acidosis Conclusion/Plan: no source of infection. no fever, no elevated wbc. I feel it's in association with her resp failure that is acute and severe. recheck in am. (5) Coronary artery disease with history of myocardial infarction without history of CABG Conclusion/Plan: she's had 3 coronary angios and stress tests. troponin rise associated with 06/2015 episode. will check in 6 hours. continue statin and ASA. - Lab Results Lab results reviewed: Yes Fish Bones: 09/17/18 06:12 09/17/18 06:12 Other Lab Results: Laboratory Tests 09/16/18 09/16/18 09/16/18 12:20 12:20 12:20 WBC 11.7 Hgb 14.9 Hct 44.4 Plt Count 210 Sodium 134 L Potassium 4.1 Chloride 104 Carbon Dioxide 20 L BUN 16 Creatinine 0.8 Glucose 400 Lactic Acid Total Bilirubin 0.7 L AST 43 H Troponin I 0.05 B-Natriuretic Peptide Total Protein 7.0 09/16/18 09/16/18 12:20 12:20 WBC Hgb Hct Plt Count Sodium Potassium Chloride Carbon Dioxide BUN Creatinine Glucose Lactic Acid 3.9 H* Total Bilirubin AST Troponin I B-Natriuretic Peptide 52 Total Protein - Diagnostic Imaging Results Diagnostic Imaging Results: positive: Final report reviewed (CXR without acute cardiopulmonary problems.) - EKG Results EKG Interpreted Independently: Yes EKG Comparison: Unchanged from prior EKG Core Measures - Anticipated LOS I expect patient to be DC'd or transferred within 96 hours.: Yes - DVT/VTE - Prophylaxis VTE/DVT Device ordered at admit?: Yes
[2018-09-16] MEDS: SODIUM CHLORIDE FLUSH 0.9% 10 ML SYRINGE IVP SCH (16:25)
[2018-09-16] MEDS ORDERED: HYDROcod/ACETAM 5/325 MG TABLET PO PRN (16:33)
[2018-09-16] MEDS: clonazePAM 0.5 MG TABLET PO SCH ×2 (16:52→21:15)
[2018-09-16] MEDS: ALBUTEROL NEB 2.5 MG/3 ML INH PRN (20:25)
[2018-09-16] MEDS ORDERED: DOCUSATE SODIUM 100 MG CAPSULE PO SCH (21:00)
[2018-09-16] MEDS ORDERED: LISINOPRIL 20 MG TABLET PO SCH (21:00)
[2018-09-16] MEDS ORDERED: MIRTAZAPINE 15 MG TABLET PO SCH (21:00)
[2018-09-16] MEDS ORDERED: FOSINOPRIL SODIUM 20 MG PO SCH (21:00)
[2018-09-17] MEDS: SODIUM CHLORIDE FLUSH 0.9% 10 ML SYRINGE IVP SCH ×2 (05:13→09:05)
[2018-09-17] MEDS: clonazePAM 0.5 MG TABLET PO SCH (06:08)
[2018-09-17 06:21] LABS: BASOPHILS % (AUTO) 0.2 %; EOSINOPHILS % (AUTO) 0.1 %; HGB - HEMOGLOBIN 12.1 g/dL (12.0-16.0); LYMPHOCYTES # (AUTO) 1.3 10^3/uL (1.5-3.5); LYMPHOCYTES % (AUTO) 9.8 %; MEAN CORPUSCULAR HEMOGLOBIN 31.1 pg (27.0-31.0); MEAN CORPUSCULAR HGB CONC 32.9 g/dL (32.0-36.0); MEAN CORPUSCULAR VOLUME 94.7 fL (81.0-99.0); MEAN PLATELET VOLUME 8.6 fL (7.9-10.8); NEUTROPHILS # (AUTO) 10.5 10^3/uL (1.5-6.6); NEUTROPHILS % (AUTO) 81.9 %; PLT - PLATELET COUNT 162 10^3/uL (130-450); RED BLOOD COUNT 3.89 10^6/uL (4.20-5.40); RED CELL DISTRIBUTION WIDTH 14.4 % (12.0-15.0); WHITE BLOOD COUNT 12.8 x10^3/uL (4.8-10.8)
[2018-09-17 06:33] LABS: CALCIUM 8.4 mg/dL (8.5-10.3); CREATININE 0.6 mg/dL (0.4-1.0); MAGNESIUM 2.2 mg/dL (1.7-2.8); PHOSPHORUS 2.7 mg/dL (2.5-4.6)
[2018-09-17] MEDS: ALBUTEROL NEB 2.5 MG/3 ML INH PRN (07:40)
[2018-09-17] MEDS ORDERED: ATORVASTATIN 40 MG TABLET PO SCH (09:00)
[2018-09-17] MEDS ORDERED: METOPROLOL SUCCINATE 25 MG TABLET PO SCH (09:00)
[2018-09-17] MEDS ORDERED: ENOXAPARIN 40 MG/0.4 ML SYRINGE SUBQ SCH (09:00)
[2018-09-17] MEDS ORDERED: ISOSORBIDE MONONITRATE ER 30 MG TABLET PO SCH (09:00)
[2018-09-17] MEDS ORDERED: FUROSEMIDE 40 MG TABLET PO SCH (09:00)
[2018-09-17] MEDS ORDERED: ASPIRIN EC 81 MG TABLET PO SCH (09:00)
[2018-09-17] MEDS ORDERED: DULoxetine 30 MG CAPSULE PO SCH (09:00)
--- NOTE | 2018-09-17 10:02 | Discharge Plan ---
Discharge Plan Disposition: 01 Home, Self Care Condition: Stable Diet: Low Sodium Activity Restrictions: Activity as Tolerated Additional Instructions or Follow Up instructions: Resume your pre-hospital medications. Continue using the inhaler for the continued wheezing. See your PCP in 5-7days in follow-up. Also, you should see your Medical Assembly in the next 1-2 weeks for further management and possible medication adjustments, and it may be appropriate to consider a pacemaker. If you have new or worsening symptoms, return to the ER. No Smoking: If you smoke, Please STOP! Call for help. Follow-up with: Pablo Mora MD [Primary Care Provider] -
[2018-09-17 10:28] VITALS: BP 121/73
--- NOTE | 2018-09-17 18:59 | DISCHARGE SUMMARY ---
Physician: Arminda Mccormack MD DATE OF ADMISSION: 09/16/2018 DATE OF DISCHARGE: 09/17/2018 HISTORY OF PRESENT ILLNESS: This is a 73-year-old white female who is a , has a history of recurrences of syncope followed by respiratory distress that have been worked up in multiple locations, including the [facility]. The only etiology that has been considered correct is that she has vasovagal syncope and then is unable to perfuse her major organs and goes into pulmonary edema. She does have a history of peripheral vascular disease with femoral bypasses as well as CAD with a stent. The patient presented 1 year after her last odd syncope presentation, in the same way; she sat on the toilet, could tell that she was having a near syncopal episode, called 911, did have near syncope, but was able to arise and even walk out to the paramedics to the ambulance. In the ambulance, she had rapidly progressive respiratory distress and needed emergency management. She was brought to the emergency room and admitted to the ICU for management. HOSPITAL COURSE AND DISCHARGE DIAGNOSES 1. Syncope. During all her time on Telemetry, she had no malignant dysrhythmias to explain a syncopal episode. Again, we assume she must have had a vasovagal event while on the toilet. 2. Acute respiratory failure with hypoxia. She had an unexpected rapid recovery from her pulmonary edema. Her flash acute respiratory failure was already returning to baseline respiratory status by the time she was in the ICU. She did have troponins monitored, which showed initial troponin of 0.05, then 0.82, 1.10, 0.77. She should have followup with her PCP and Tab Cutter for further management, adjustment of medications, or further workup by specialists. Patient also reported having recent upper respiratory and sinus infections and did have mild wheezing at the time of discharge. She was reminded to use her inhalers on schedule and resume her other prehospital medications and be compliant with these. 3. Chronic obstructive pulmonary disease. Patient reports underlying emphysema from prior smoking. She was back to her baseline respiratory status at the time of discharge. 4. Lactic acidosis. There were no signs of infection, fever or elevation of white blood count. Her elevated lactic acid was felt to be related to her acute respiratory failure that was severe. 5. Coronary artery disease with history of myocardial infarction without history of coronary artery bypass graft. Patient has had several coronary angiograms and stress tests in the past. She had a troponin increase in her 06/2015 episode as well as this one, and for that reason, a Cardiology followup is advised. She was continued on her statin and aspirin daily. CONDITION AT DISCHARGE: Fair. PHYSICAL EXAMINATION VITAL SIGNS: Blood pressure 121/73, pulse 68 in sinus rhythm, afebrile, room air saturation 97%. HEENT: Showed a hoarseness of her voice and a dry cough. NECK: Without JVD or carotid bruits. CHEST: Scattered wheezes, increased AP diameter. There were no rales or rhonchi. HEART: Heart sounds normal. ABDOMEN: Soft and benign. EXTREMITIES: No edema. NEUROLOGIC: Grossly intact. CODE STATUS: FULL CODE. FOLLOWUP: She was advised to see her PCP within a week and also follow up with her Tab Cutter soon and/or a Beef Killer. Time required to complete this entire discharge, chart review, orders, dictation: 30 minutes. cc: Pablo Mora MD TD: 09/17/2018 18:18 MTDD
== END 2018-09-17 11:19 | disposition home or self-care (01) | DRG 189 ==
LOC: EDBD → ED 11:43 → MERGE 11:43 → ICU 13:51
PROVIDERS: ADMIT Specialist; ATTEND Internal Medicine
DX: J96.00 Acute respiratory failure, unspecified whether with hypoxia or hypercapnia (principal); J44.9 Chronic obstructive pulmonary disease, unspecified; J96.01 Acute respiratory failure with hypoxia; J81.1 Chronic pulmonary edema; E87.2 Acidosis; K55.1 Chronic vascular disorders of intestine; R55 Syncope and collapse; J43.9 Emphysema, unspecified; I10 Essential (primary) hypertension; I73.9 Peripheral vascular disease, unspecified; I25.10 Atherosclerotic heart disease of native coronary artery without angina pectoris; I70.1 Atherosclerosis of renal artery; E78.00 Pure hypercholesterolemia, unspecified; F32.9 Major depressive disorder, single episode, unspecified; F41.9 Anxiety disorder, unspecified; K21.9 Gastro-esophageal reflux disease without esophagitis; I25.2 Old myocardial infarction; Z95.5 Presence of coronary angioplasty implant and graft; Z87.891 Personal history of nicotine dependence; Z79.899 Other long term (current) drug therapy; Z79.82 Long term (current) use of aspirin; Z63.79 Other stressful life events affecting family and household; Z86.79 Personal history of other diseases of the circulatory system; Z79.51 Long term (current) use of inhaled steroids
CPT/HCPCS: 36415; 36600; 51702; 71045; 80048; 80053; 80306; 82803; 83605; 83690; 83735; 83880; 84100; 84484; 85025; 85610; 85730; 87040; 87150; 90686; 93005; 94640; 96365; 96366; 96375; 99285; 99291

== ENCOUNTER 2019-07-23 13:17 | Outpatient (CLI) | payer MEDICARE, OTHER ==
[~2019-07-23 13:17] MED LIST: ALBUTEROL NEB 2.5 MG/3 ML INH ONE
== END 2019-07-23 13:18 | disposition home or self-care (01) ==
LOC: RT 13:17
PROVIDERS: ATTEND Family Medicine
DX: R06.09 Other forms of dyspnea (principal)
CPT/HCPCS: 94060

== ENCOUNTER 2021-09-25 22:38 | Outpatient (CLI) | payer MEDICARE, OTHER | END 2021-09-25 22:39 | disposition critical access hospital (66) | LOC: EMS 22:38 | DX: F41.9 Anxiety disorder, unspecified (principal) | CPT/HCPCS: A0425; A0429 ==

== ENCOUNTER 2021-09-25 22:44 | Emergency (ER) | payer MEDICARE, OTHER ==
[2021-09-25] MEDS ORDERED: LORazepam 2 MG/ML VIAL IVP STA (23:19)
[2021-09-25 23:22] LABS: BASOPHILS % (AUTO) 0.5 %; EOSINOPHILS # (AUTO) 0.2 10^3/uL (0.0-0.7); EOSINOPHILS % (AUTO) 2.6 %; HCT - HEMATOCRIT 44.1 % (37.0-47.0); HGB - HEMOGLOBIN 14.7 g/dL (12.0-16.0); LYMPHOCYTES # (AUTO) 2.6 10^3/uL (1.5-3.5); LYMPHOCYTES % (AUTO) 33.1 %; MEAN CORPUSCULAR HEMOGLOBIN 31.7 pg (27.0-31.0); MEAN CORPUSCULAR HGB CONC 33.3 g/dL (32.0-36.0); MEAN PLATELET VOLUME 10.6 fL (7.9-10.8); MONOCYTES # (AUTO) 0.5 10^3/uL (0.0-1.0); NEUTROPHILS # (AUTO) 4.5 10^3/uL (1.5-6.6); NEUTROPHILS % (AUTO) 57.4 %; PLT - PLATELET COUNT 281 10^3/uL (130-450); RED BLOOD COUNT 4.64 10^6/uL (4.20-5.40); RED CELL DISTRIBUTION WIDTH 12.6 % (12.0-15.0); WHITE BLOOD COUNT 7.8 x10^3/uL (4.8-10.8)
[2021-09-25 23:38] LABS: ALBUMIN 4.4 g/dL (3.2-5.5); BILIRUBIN,TOTAL 0.9 mg/dL (0.2-1.0); CALCIUM 9.5 mg/dL (8.5-10.3); CREATININE 0.9 mg/dL (0.4-1.0); POTASSIUM 3.8 mmol/L (3.5-5.0); TOTAL PROTEIN 7.4 g/dL (6.7-8.2)
[2021-09-25 23:39] LABS: ALBUMIN/GLOBULIN RATIO 1.5 (1.0-2.2)
--- NOTE | 2021-09-26 01:15 | XRAY Report ---
PROCEDURE: Chest 1 View X-Ray INDICATIONS: chest pain TECHNIQUE: One view of the chest was acquired. COMPARISON: CXR 08/23/2015. FINDINGS: Surgical changes and devices: None. Lungs and pleura: No pleural effusions or pneumothorax. Lungs are clear. Mediastinum: Mediastinal contours appear unchanged. Heart size is normal. Bones and chest wall: No suspicious bony lesions. Overlying soft tissues appear unremarkable. IMPRESSION: No acute cardiopulmonary abnormality. Reviewed by: Elvin Duncan MD on 09/26/2021 1:14 AM PST Approved by: Elvin Duncan MD on 09/26/2021 1:14 AM PST Station ID: [id number]
--- NOTE | 2021-09-26 02:49 | ED Physician Documentation ---
History of Present Illness - Stated complaint Stated Complaint: SOA,RLQ PAIN - Chief complaint Chief Complaint: Abd Pain - History obtained from History obtained from: Patient - Additonal information Additional information: Patient comes emergency department chief complaint of dyspnea on exertion. She states that she has felt faint walking to the kitchen sometimes, and it reminds her of the episode she used to have when she would go to the toilet to have a bowel movement. She states that she would become lightheaded and barely wipe and get her pants up when she would have a syncopal episode. This went on for quite some time and she states that her doctor finally sent her to the [facility] to get it checked out. She states nobody was ever able to figure out what exactly was causing this, and ultimately, she stopped having the episodes about 3 years ago. She has not had one since. She states that she did not have any chest pain today. She does admit that she drinks some water, but probably only about 32 ounces a day. She also drinks a little iced tea. She denies any fevers or chills. She is otherwise fairly healthy. She does note that she was on clonazepam for years and was weaned off of it by her doctor. She does get anxious but does not want to get on clonazepam again. The patient states that right now she is feeling fine. No other complaints at this time. Review of Systems Ten Systems: 10 systems reviewed and negative Constitutional: reports: Reviewed and negative Eyes: reports: Reviewed and negative Ears: reports: Reviewed and negative Nose: reports: Reviewed and negative Throat: reports: Reviewed and negative Cardiac: reports: Reviewed and negative Respiratory: reports: Dyspnea GI: reports: Reviewed and negative : reports: Reviewed and negative Skin: reports: Reviewed and negative Musculoskeletal: reports: Reviewed and negative Neurologic: reports: Reviewed and negative Psychiatric: reports: Reviewed and negative Endocrine: reports: Reviewed and negative Immunocompromised: reports: Reviewed and negative PD PAST MEDICAL HISTORY - Past Medical History Past Medical History: Yes Cardiovascular: Congestive heart failure, Hypertension, High cholesterol, Coronary artery disease, Peripheral Vascular Disease, [place] Respiratory: Asthma, COPD Neuro: Fainting Endocrine/Autoimmune: None GI: GERD, Other INTERNAL MEDICINE NURSE: Other : Other HEENT: Other Psych: Depression, Anxiety Musculoskeletal: Chronic back pain Derm: None - Past Surgical History Past Surgical History: Yes General: Cholecystectomy, Appendectomy, Colonoscopy, EGD /INTERNAL MEDICINE NURSE: section, Other Cardiovascular: Coronary stent, AAA HEENT: Cataracts, Tonsil/Adenoidectomy - Present Medications Home Medications: Ambulatory Orders Medication Instructions Recorded Confirmed Aspirin [Aspirin EC] 81 mg PO DAILY 08/02/15 09/25/21 Duloxetine HCl [Cymbalta] 30 mg PO DAILY 08/02/15 09/25/21 Fluticasone Propionate [Flonase 1 spray NS BID 08/02/15 09/16/18 Allergy Relief] Fosinopril Sodium 20 mg PO QPM 08/02/15 09/25/21 Ipratropium/Albuterol Sulfate 1 puffs IH QID PRN 08/02/15 09/25/21 [Combivent Respimat 20-100 Mcg] clonazePAM [Klonopin] 1.5 mg PO TID 08/02/15 09/16/18 Atorvastatin Calcium 40 mg PO DAILY 06/16/17 09/25/21 Mirtazapine 15 mg PO QPM 06/16/17 09/25/21 Nitroglycerin 1 tab PO Q5MIN PRN MDD 3 TABLETS 06/16/17 09/25/21 [place]-3/Dha/Epa/Fish Oil [Fish Oil 1 tab PO BID 06/16/17 09/25/21 1,000 mg Softgel] Pantoprazole [Protonix] 1 tab PO QDLUNCH 06/16/17 09/25/21 Vit A/Vit C/Vit E/Zinc/Copper 1 tab PO QPM 06/16/17 09/25/21 [Preservision Areds Softgel] Docusate Sodium 200 mg PO QPM 09/16/18 09/25/21 Isosorbide Mononitrate ER [Imdur] 30 mg PO DAILY 09/16/18 09/25/21 Metoprolol Succinate 25 mg PO DAILY 09/16/18 09/25/21 Albuterol Sulfate [Proair Hfa 8.5 gm IH Q4H PRN #1 inhaler 09/26/21 Inhaler] Fluticasone/Salmeterol [Advair 1 inh IH BID #1 each 09/26/21 250-50 Diskus] - Allergies Allergies/Adverse Reactions: Allergies Allergy/AdvReac Type Severity Reaction Status Date / Time iodine Allergy Severe Respiratory Verified 09/25/21 22:48 prednisone AdvReac Unknown Unknown Verified 09/25/21 22:48 - Social History Does the pt smoke?: No Smoking Status: Never smoker Does the pt drink ETOH?: No Does the pt have substance abuse?: No - Immunizations Immunizations are current?: Yes - POLST Patient has POLST: No POLST Status: Full Code PD ED PE NORMAL - Vitals Vital signs reviewed: Yes - General General: Alert and oriented X 3, No acute distress, Well developed/nourished - HEENT HEENT: Atraumatic, PERRL, EOMI, Moist mucous membranes - Neck Neck: Supple, no meningeal sign - Cardiac Cardiac: RRR, No murmur, Strong equal pulses - Respiratory Respiratory: No respiratory distress, Clear bilaterally - Abdomen Abdomen: Soft, Non tender, Non distended - Derm Derm: Normal color, Warm and dry, No rash - Extremities Extremities: No deformity, No edema, No calf tenderness / cord - Neuro Neuro: Alert and oriented X 3, radar tester 2-12 intact, No motor deficit, No sensory deficit, Normal speech - Psych Psych: Normal mood, Normal affect Results - Vitals Vitals: Vital Signs - 24 hr 09/25/21 09/25/21 09/25/21 22:48 23:00 23:09 Temperature 36.4 C L 37.2 C Heart Rate 95 77 82 Respiratory 26 H 17 21 Rate Blood Pressure 176/149 H 169/89 H 127/62 O2 Saturation 98 95 94 09/25/21 09/26/21 09/26/21 23:33 00:15 01:33 Temperature Heart Rate 82 76 67 Respiratory 20 19 20 Rate Blood Pressure 133/67 H 146/104 H 118/56 L O2 Saturation 94 94 94 09/26/21 09/26/21 02:41 03:10 Temperature 36.9 C Heart Rate 69 88 Respiratory 24 20 Rate Blood Pressure 140/57 H 131/80 H O2 Saturation 94 97 Oxygen O2 Source Room air - Labs Labs: Laboratory Tests 09/25/21 09/25/21 09/26/21 22:55 22:55 00:24 WBC 7.8 RBC 4.64 Hgb 14.7 Hct 44.1 MCV 95.0 MCH 31.7 H MCHC 33.3 RDW 12.6 Plt Count 281 MPV 10.6 Neut # (Auto) 4.5 Lymph # (Auto) 2.6 [place] # (Auto) 0.5 Eos # (Auto) 0.2 Baso # (Auto) 0.0 Absolute Nucleated RBC 0.00 Nucleated RBC % 0.0 Sodium 138 Potassium 3.8 Chloride 100 L Carbon Dioxide 23 Anion Gap 15.0 H BUN 17 Creatinine 0.9 Estimated GFR (MDRD) 61 L Glucose 202 H Calcium 9.5 Total Bilirubin 0.9 AST 23 ALT 18 Alkaline Phosphatase 59 B-Natriuretic Peptide 42 Total Protein 7.4 Albumin 4.4 Globulin 3.0 Albumin/Globulin Ratio 1.5 Lipase 32 - Rads (name of study) Chest XR Radiology: Final report received, EMP read indepedently, See rad report (neg) PD MEDICAL DECISION MAKING - ED course Complexity details: reviewed results, re-evaluated patient, considered differential, d/w patient ED course: The patient was coherent, but very tangential and distracted in her responses to my questions, and it was somewhat difficult to get a clear and concise history f rom her. However, I did end up working her up with labs and chest x-ray, all of which were unremarkable. Patient's oxygen saturation in the emergency department was normal, and she ambulated about the emergency department without difficulty. I felt she was stable for discharge home. The patient had no real recollection of our initial conversation which was somewhat odd, but once again, she was alert and oriented x3 and had had a completely negative work-up. I discussed with her that it is important to follow-up with her primary care physician to address any further concerns. We have discussed the usual indications for return to the emergency department. Departure - Departure Disposition: 01 Home, Self Care Clinical Impression: Dyspnea Qualifiers: Dyspnea type: dyspnea on exertion Qualified Code(s): R06.00 - Dyspnea, unspecified Condition: Stable Instructions: ED Dyspnea Shortness of Breath Prescriptions: Fluticasone/Salmeterol [Advair 250-50 Diskus] 1 inh IH BID #1 each Albuterol Sulfate [Proair Hfa Inhaler] 8.5 gm IH Q4H PRN #1 inhaler PRN Reason: Wheezing Comments: Your chest x-ray and labs look good. It is not clear why you continue to have the feeling of shortness of breath. No problems with your heart or lungs have been found today. Your oxygen levels in the emergency department have been within normal limits on regular air. Please follow-up with your primary care physician if you continue to feel as though you are having trouble breathing. Discharge Date/Time: 09/26/21 03:31
[2021-09-26 03:28] VITALS: BP 131/80
== END 2021-09-26 03:31 | disposition home or self-care (01) ==
LOC: EDUNIT# → ED 22:44 → SUPCPDRO 22:44 → ED 09-26 03:31
DX: R06.00 Dyspnea, unspecified (principal)
CPT/HCPCS: 36415; 71045; 80053; 83690; 83880; 85025; 96374; 99283; 99284; J2060

== ENCOUNTER 2021-10-20 08:00 | Outpatient (CLI) | payer MEDICARE, OTHER ==
--- NOTE | 2021-10-20 13:25 | XRAY Report ---
PROCEDURE: Chest 2 View X-Ray INDICATIONS: DYSPNEA ON EXERTION TECHNIQUE: 2 view(s) of the chest. COMPARISON: September 26, 2021. FINDINGS: SUPPORT DEVICES: None. LUNGS/PLEURA: No focal consolidation, pleural effusion or space-occupying pneumothorax. MEDIASTINUM: The cardiomediastinal silhouette is within normal limits. BONES/SOFT TISSUES: No acute abnormality. IMPRESSION: 1.No acute cardiopulmonary abnormality. Reviewed by: Blaise Bryant MD on 10/20/2021 1:24 PM [facility] Approved by: Blaise Bryant MD on 10/20/2021 1:24 PM [facility] Station ID: [id number]
== END 2021-10-20 23:59 ==
LOC: DI.N 08:00
PROVIDERS: ATTEND Family Medicine
DX: R06.09 Other forms of dyspnea (principal)

== ENCOUNTER 2021-10-20 08:00 | Outpatient (CLI) | payer MEDICARE, OTHER ==
[2021-10-20 18:36] LABS: BASOPHILS # (AUTO) 0.1 10^3/uL (0.0-0.1); BASOPHILS % (AUTO) 0.7 %; EOSINOPHILS # (AUTO) 0.3 10^3/uL (0.0-0.7); EOSINOPHILS % (AUTO) 3.6 %; HCT - HEMATOCRIT 41.1 % (37.0-47.0); HGB - HEMOGLOBIN 13.6 g/dL (12.0-16.0); LYMPHOCYTES % (AUTO) 39.9 %; MEAN CORPUSCULAR HEMOGLOBIN 31.7 pg (27.0-31.0); MEAN CORPUSCULAR HGB CONC 33.1 g/dL (32.0-36.0); MEAN CORPUSCULAR VOLUME 95.8 fL (81.0-99.0); MEAN PLATELET VOLUME 10.9 fL (7.9-10.8); MONOCYTES # (AUTO) 0.6 10^3/uL (0.0-1.0); MONOCYTES % (AUTO) 8.3 %; NEUTROPHILS # (AUTO) 3.6 10^3/uL (1.5-6.6); NEUTROPHILS % (AUTO) 47.1 %; PLT - PLATELET COUNT 301 10^3/uL (130-450); RED BLOOD COUNT 4.29 10^6/uL (4.20-5.40); WHITE BLOOD COUNT 7.6 x10^3/uL (4.8-10.8)
[2021-10-20 18:53] LABS: CALCIUM 9.7 mg/dL (8.5-10.3); CREATININE 0.6 mg/dL (0.4-1.0); POTASSIUM 3.9 mmol/L (3.5-5.0)
== END 2021-10-20 23:59 ==
LOC: LAB.N 08:00
PROVIDERS: ATTEND Family Medicine
DX: R06.09 Other forms of dyspnea (principal)
CPT/HCPCS: 36415; 80048; 83880; 84484; 85025

== ENCOUNTER 2021-10-23 18:44 | Outpatient (CLI) | payer MEDICARE, OTHER | END 2021-10-23 18:45 | disposition short-term general hospital (02) | LOC: EMS 18:44 | DX: M79.10 Myalgia, unspecified site (principal); R06.00 Dyspnea, unspecified | CPT/HCPCS: A0425; A0429 ==

== ENCOUNTER 2024-06-03 11:25 | Outpatient (CLI) | payer MEDICARE, OTHER | END 2024-06-03 23:59 | disposition short-term general hospital (02) | LOC: EMS 11:25 | PROVIDERS: ATTEND Emergency Medicine | DX: R45.82 Worries (principal); F41.9 Anxiety disorder, unspecified; R06.02 Shortness of breath; I10 Essential (primary) hypertension; R42 Dizziness and giddiness; R11.0 Nausea | CPT/HCPCS: A0425; A0429; A0888 ==